=== PATIENT | female | born 1995 | race Caucasian/White ===

== ENCOUNTER 2018-10-21 18:49 | Emergency (ER) | payer BC ==
--- NOTE | 2018-10-21 19:14 | EDM.PDOC ---
ED HPI GENERAL MEDICAL PROBLEM - General Chief Complaint: Lower Extremity Injury/Pain Stated Complaint: INJURY TO L ANKLE Time Seen by Provider: 10/21/18 19:05 Source of Information: Reports: Patient - History of Present Illness INITIAL COMMENTS - FREE TEXT/NARRATIVE: 22-year-old white female while playing softball at a local [employer] states was running toward third when her ankle turned inward and popped states she could not walk on it afterwards she denies any numbness or tingling loss of sensation or coldness discoloration denies any increased immediate edema no other injuries at this time no other complaints at this time Quality: Reports: Ache Severity: Mild Improves with: Reports: None Worsens with: Reports: Movement Associated Symptoms: Reports: No Other Symptoms (pt does not want anything for pain ) Left Ankle Pain Score (Numeric/FACES): 9 - Related Data Allergies Allergy/AdvReac Type Severity Reaction Status Date / Time No Known Allergies Allergy Verified 10/21/18 19:10 Home Meds: Home Meds . [No Known Home Meds] 10/21/18 [History] Review of Systems - Review of Systems Review Of Systems: See Below Constitutional: Reports: No Symptoms Eyes: Reports: No Symptoms Mouth/Throat: Reports: No Symptoms Respiratory: Reports: No Symptoms Cardiovascular: Reports: No Symptoms GI/Abdominal: Reports: No Symptoms Musculoskeletal: Reports: Other (ankle pain ) Skin: Reports: No Symptoms Neurological: Reports: No Symptoms ED EXAM, GENERAL - Physical Exam Exam: See Below Exam Limited By: No Limitations General Appearance: Alert, WD/WN, No Apparent Distress. No: Mild Distress, Moderate Distress Respiratory/Chest: No Respiratory Distress, Lungs Clear, Normal Breath Sounds, No Accessory Muscle Use Cardiovascular: Normal Peripheral Pulses, Regular Rate, Rhythm, No Edema, No Gallop, No JVD, No Murmur GI/Abdominal: Normal Bowel Sounds, Soft, Non-Tender Extremities: Normal Inspection, Normal Range of Motion, Normal Capillary Refill , Other (Exam to left ankle positive dorsalis pedis posterior tibialis intact normal soft touch sensation normal plantar flexion dorsiflexion negative tenderness to palpation over the fifth metatarsal no tenderness to palpation over the navicular mild tenderness to palpation over the lateral malleolus and over the medial malleolus no tenderness to palpation over the proximal tib-fib are mid tib-fib the calf was soft and supple no edema or ecchymosis was noted surrounding the ankle limited range of motion secondary to pain). No: Non- Tender, Pedal Edema Neurological: Alert, Oriented, CN II-XII Intact, Normal Cognition, No Motor/ Sensory Deficits Psychiatric: Normal Affect, Normal Mood Skin Exam: Warm, Dry, Intact, Normal Color, No Rash Course - Vital Signs Text/Narrative:: Three-view x-ray ankle was ordered medial malleolus fracture minimal displacement and no angulation Last Recorded V/S: Last Vital Signs Temp 37.4 C 10/21/18 18:49 Pulse 87 10/21/18 18:49 Resp 18 10/21/18 18:49 BP 132/82 10/21/18 18:49 Pulse Ox 98 10/21/18 18:49 - Orders/Labs/Meds Orders: Active Orders 24 hr Category Date Time Status Ankle Min 3V Lt [CR] Stat Exams 10/21/18 19:03 Ordered Departure - Departure Time of Disposition: 19:50 Disposition: Home, Self-Care 01 Condition: Good Clinical Impression: Fracture of ankle, medial malleolus, closed - Discharge Information Referrals: PCP,Not In Area [Primary Care Provider] - - Problem List & Annotations (1) Fracture of ankle, medial malleolus, closed SNOMED Code(s): 02719053 Code(s): S82.53XA - DISP FX OF MEDIAL MALLEOLUS OF UNSP TIBIA, INIT FOR CLOS FX Status: Acute Current Visit: Yes Qualifiers: Encounter type: initial encounter Fracture alignment: nondisplaced - My Orders Last 24 Hours: My Active Orders 10/21/18 19:03 Ankle Min 3V Lt [CR] Stat - Assessment/Plan Last 24 Hours: My Active Orders 10/21/18 19:03 Ankle Min 3V Lt [CR] Stat Plan: Patient was informed [id number] NSAIDs alternating Tylenol 500 mg by mouth every 4-6 hours Motrin 800 mg by mouth 8hrs and apply ice to the area as much as possible one hour on 1 hour off [facility] was called at 1925 was told that orthopedics do not cover ankle fractures goes to podiatry Spoke with Dr. Ramirez he will have his office call her Wednesday with the time for appointment James says he will see the patient outpatient at the patient' s request she wishes to be seen possibly or Wednesday Dr. Martinez agrees this will be acceptable patient also requests that she is put in a hard splint instead of a boot which he agrees to acceptable as long she stays nonweightbearing Patient and college sports [employer] and try to give verbal understanding for need for appropriate treatment and for follow-up and for needs to return to the emergency room patient was also asked if she needed anything for pain she states no An OCL slab and stirrup splint was applied patient was rechecked neurovascularly intact afterwards normal sensation was given signs and symptoms of need to loosen the splint and return to the ER patient gave verbal understanding she was also giving 60 mg of Toradol IM
--- NOTE | 2018-10-21 19:41 | CR ---
[id number] RAD/RAD Ankle Left 3V Min EXAM: 3 VIEWS LEFT ANKLE. INDICATION: ROLLED ANKLE COMPARISON: None. DISCUSSION: Acute laterally displaced fracture of the distal left fibula. The ankle mortise is maintained. No other fractures are identified. Significant associated soft tissue edema. Moderate to large left ankle joint effusion. IMPRESSION: 1. Acute fracture of the distal left fibula as described above. Xavi Man DO 10/21/18 1940 Thank you for allowing us to participate in the care of your patient.
[2018-10-21] MEDS ORDERED: Ketorolac 60 MG/2 ML SDV IM ONE (20:08)
== END 2018-10-21 21:03 | disposition home or self-care (01) ==
LOC: VM.ED 18:49
DX: S82.53XA Displaced fracture of medial malleolus of unspecified tibia, initial encounter for closed fracture (principal); X50.1XXA Overexertion from prolonged static or awkward postures, initial encounter; Y93.64 Activity, baseball; Y92.214 College as the place of occurrence of the external cause
CPT/HCPCS: 29515; 73610; 96372; 99283; J1885